=== PATIENT | male | born 1985 | race Caucasian/White ===

== ENCOUNTER 2021-04-26 15:14 | Inpatient (IN) | payer OTHER ==
[~2021-04-26 15:14] MED LIST: Iopamidol-370 76% 500 ML 1 ML ONE
[2021-04-26 15:46] LABS: #Lymphocytes 1.8 thou/uL (1.20-3.40); #Monocytes 0.3 thou/uL (0.11-0.59); #Neutrophils 5.8 thou/uL (1.40-6.50); %Basophils 0.2 % (0.0-1.0); %Eosinophils 0.4 % (0.0-10.0); %Lymphocytes 22.8 % (21.0-51.0); %Monocytes 3.4 % (0.0-10.0); %Neutrophils 73.2 % (42.0-75.0); Hemoglobin 14.7 g/dL (14.0-18.0); Mean Corpuscular HGB CONC 34.3 g/dL (32.0-36.0); Mean Corpuscular Hemoglobin 32.2 pg (27.0-31.0); Mean Corpuscular Volume 93.9 fL (78.0-98.0); Mean Platelet Volume 7.8 fL (7.4-10.4); Platelet Count 234 thou/uL (130-400); RBC Distribution Width 12.9 % (11.5-14.5); Red Blood Cell (RBC) Count 4.56 mill/uL (4.70-6.10); White Blood Cell (WBC) Count 7.9 thou/uL (4.8-10.8)
[2021-04-26] MEDS ORDERED: Ondansetron PF 4 MG/2 ML Vial ONE (16:24)
[2021-04-26] MEDS ORDERED: Morphine 4 MG/ML VIAL ONE (16:25)
[2021-04-26] MEDS ORDERED: Piperacillin/Tazobactam 3.375 GM VIAL ONE (17:02)
[2021-04-26] MEDS ORDERED: Acetaminophen 500 MG TAB ONE ×2 (17:03)
[2021-04-26] MEDS ORDERED: Piperacillin/Tazobactam 4.5 GM VIAL ONE (17:06)
[2021-04-26 17:07] LABS: ALT (SGPT) 12 U/L (8-55); AST (SGOT) 30 U/L (5-34); Albumin 3.4 g/dL (3.5-5.0); Alkaline Phosphatase 95 U/L (40-110); Anion Gap 20 mmol/L (10-20); BUN (Urea Nitrogen) 19 mg/dL (8.9-20.6); Bilirubin, Total 0.9 mg/dL (0.2-1.2); Calc. Creatinine Clearance 0 mL/min (70-130); Calcium 8.8 mg/dL (7.8-10.44); Carbon Dioxide 20 mmol/L (22-29); Chloride 97 mmol/L (98-107); Globulin 3.6 g/dL (2.4-3.5); Glucose 99 mg/dL (70-105); Potassium 3.8 mmol/L (3.5-5.1); Sodium 133 mmol/L (136-145)
[2021-04-26] MEDS ORDERED: Ondansetron PF 4 MG/2 ML Vial IVP PRN (17:54)
[2021-04-26 18:19] LABS: SARS-CoV-2 NAA Rapid Test Not Detected (NotDetected)
[2021-04-26 19:28] LABS: Lactic Acid 1.9 mmol/L (0.5-2.2)
[2021-04-26] MEDS ORDERED: Sodium Chloride 0.9% 1,000 ML IV SCH (21:00)
[2021-04-26] MEDS: Piperacillin/Tazobactam 3.375 GM in Sodium Chloride 0.9% 100 ML IVPB SCH (21:01)
[2021-04-26] MEDS: metroNIDAZOLE 500 MG in Premix Bag 1 BAG IVPB SCH (21:43)
[2021-04-26] MEDS: Sodium Chloride 0.9% 1,000 ML IV SCH (22:59)
[2021-04-27] MEDS: Morphine 4 MG/ML VIAL SLOW IVP PRN ×3 (01:28→13:02)
[2021-04-27] MEDS: Sodium Chloride 0.9% 1,000 ML IV SCH ×3 (01:31→22:26)
[2021-04-27 02:22] VITALS: BMI 35.1
[2021-04-27] MEDS: Piperacillin/Tazobactam 3.375 GM in Sodium Chloride 0.9% 100 ML IVPB SCH ×3 (05:37→21:12)
[2021-04-27] MEDS: metroNIDAZOLE 500 MG in Premix Bag 1 BAG IVPB SCH ×3 (05:38→21:12)
[2021-04-27 07:33] LABS: INR-International Normal Ratio 1.3; PTT 30.3 sec (22.9-36.1); Prothrombin Time 16.6 sec (12.0-14.7)
[2021-04-27 07:44] LABS: ALT (SGPT) 17 U/L (8-55); AST (SGOT) 35 U/L (5-34); Albumin 3.1 g/dL (3.5-5.0); Alkaline Phosphatase 64 U/L (40-110); Anion Gap 22 mmol/L (10-20); BUN (Urea Nitrogen) 20 mg/dL (8.9-20.6); Bilirubin, Total 1.4 mg/dL (0.2-1.2); Calc. Creatinine Clearance 174 mL/min (70-130); Calcium 8.6 mg/dL (7.8-10.44); Carbon Dioxide 19 mmol/L (22-29); Chloride 103 mmol/L (98-107); Globulin 3.4 g/dL (2.4-3.5); Glucose 93 mg/dL (70-105); Potassium 5.2 mmol/L (3.5-5.1); Protein, Total 6.5 g/dL (6.0-8.3); Sodium 139 mmol/L (136-145)
[2021-04-27 07:55] LABS: Hemoglobin 16.9 g/dL (14.0-18.0); Mean Corpuscular HGB CONC 33.3 g/dL (32.0-36.0); Mean Corpuscular Hemoglobin 31.4 pg (27.0-31.0); Mean Corpuscular Volume 94.4 fL (78.0-98.0); Mean Platelet Volume 8.7 fL (7.4-10.4); Platelet Count 257 thou/uL (130-400); RBC Distribution Width 13.3 % (11.5-14.5); Red Blood Cell (RBC) Count 5.38 mill/uL (4.70-6.10); White Blood Cell (WBC) Count 21.7 thou/uL (4.8-10.8)
[2021-04-27] MEDS ORDERED: Sodium Bicarbonate 2.5 MEQ/5 ML VIAL ONE (08:05)
[2021-04-27] MEDS ORDERED: Fentanyl 100 MCG/2 ML VIAL ONE (08:05)
[2021-04-27 08:49] LABS: Band 55 % (5-11); Dohle Bodies SLIGHT; Lymphocytes 10 % (21-51); MDiff Complete? YES; Metamyelocyte 5 % (0-0); Monocytes 2 % (0-10); Neutrophil 28 % (42-75); Nucleated RBC 1 % (0); Platelet Morphology Comment Appears Adequate; Polychromasia SLIGHT = 2-3 cells (100X) (0-2/hpf); Reflex for Review?? YES; Vacuoles SLIGHT
[2021-04-27] MEDS ORDERED: Sodium Chloride 0.9% 1,000 ML IV SCH (09:30)
[2021-04-28] MEDS: Sodium Chloride 0.9% 1,000 ML IV SCH ×3 (02:22→18:58)
[2021-04-28] MEDS: Piperacillin/Tazobactam 3.375 GM in Sodium Chloride 0.9% 100 ML IVPB SCH ×3 (05:12→21:12)
[2021-04-28] MEDS: metroNIDAZOLE 500 MG in Premix Bag 1 BAG IVPB SCH ×3 (05:12→21:13)
[2021-04-28] MEDS ORDERED: Sodium Chloride 0.9% 500 ML IV SCH (10:00)
[2021-04-28] MEDS: Morphine 4 MG/ML VIAL SLOW IVP PRN (10:43)
[2021-04-28] MEDS ORDERED: Lurasidone HCl 40 MG TABLET PO SCH (21:00)
[2021-04-28] MEDS: Aripiprazole 15 MG TAB PO SCH (21:12)
[2021-04-28] MEDS: Zolpidem Tartrate 5 MG TAB PO SCH (21:12)
[2021-04-28] MEDS: Temazepam 15 MG CAP PO SCH (21:12)
[2021-04-28] MEDS: Prazosin HCl 1 MG CAP PO SCH (21:13)
[2021-04-29] MEDS: Sodium Chloride 0.9% 1,000 ML IV SCH ×4 (02:07→13:34)
[2021-04-29] MEDS: Piperacillin/Tazobactam 3.375 GM in Sodium Chloride 0.9% 100 ML IVPB SCH (05:35)
[2021-04-29] MEDS: metroNIDAZOLE 500 MG in Premix Bag 1 BAG IVPB SCH ×3 (05:35→21:42)
[2021-04-29] MEDS: Levothyroxine Sodium 100 MCG TAB PO SCH (05:35)
[2021-04-29 07:10] LABS: Hemoglobin 13.8 g/dL (14.0-18.0); Mean Corpuscular HGB CONC 32.5 g/dL (32.0-36.0); Mean Corpuscular Hemoglobin 31.1 pg (27.0-31.0); Mean Corpuscular Volume 95.8 fL (78.0-98.0); Mean Platelet Volume 8.4 fL (7.4-10.4); Platelet Count 227 thou/uL (130-400); RBC Distribution Width 13.9 % (11.5-14.5); Red Blood Cell (RBC) Count 4.45 mill/uL (4.70-6.10); White Blood Cell (WBC) Count 20.2 thou/uL (4.8-10.8)
[2021-04-29 07:14] LABS: ALT (SGPT) 18 U/L (8-55); AST (SGOT) 49 U/L (5-34); Albumin 2.7 g/dL (3.5-5.0); Alkaline Phosphatase 91 U/L (40-110); Anion Gap 16 mmol/L (10-20); BUN (Urea Nitrogen) 22 mg/dL (8.9-20.6); Calc. Creatinine Clearance 203 mL/min (70-130); Calcium 8.6 mg/dL (7.8-10.44); Carbon Dioxide 20 mmol/L (22-29); Chloride 102 mmol/L (98-107); Globulin 3.7 g/dL (2.4-3.5); Glucose 91 mg/dL (70-105); Potassium 3.6 mmol/L (3.5-5.1); Protein, Total 6.4 g/dL (6.0-8.3); Sodium 134 mmol/L (136-145)
[2021-04-29 08:14] LABS: Band 21 % (5-11); Eosinophils 1 % (0-10); Lymphocytes 5 % (21-51); MDiff Complete? YES; Metamyelocyte 3 % (0-0); Monocytes 8 % (0-10); Myelocyte 1 % (0-0); Neutrophil 60 % (42-75); Platelet Morphology Comment Appears Adequate; Polychromasia SLIGHT = 2-3 cells (100X) (0-2/hpf); Reactive Lymphocytes 1 % (0-10)
[2021-04-29] MEDS: Bupropion 100 MG SR TAB PO SCH (09:39)
[2021-04-29] MEDS: Lurasidone 20 MG TABLET PO SCH ×2 (09:39→21:41)
[2021-04-29] MEDS: Venlafaxine HCl XR 75 MG CAP PO SCH (09:40)
[2021-04-29 12:56] LABS: Lactic Acid 1.9 mmol/L (0.5-2.2)
[2021-04-29] MEDS: Aripiprazole 15 MG TAB PO SCH (21:40)
[2021-04-29] MEDS: Enoxaparin Sodium 30 MG/0.3 ML SYRINGE SC SCH (21:40)
[2021-04-29] MEDS: Prazosin HCl 1 MG CAP PO SCH (21:41)
[2021-04-29] MEDS: Zolpidem Tartrate 5 MG TAB PO SCH (21:41)
[2021-04-29] MEDS: Temazepam 15 MG CAP PO SCH (21:41)
[2021-04-29] MEDS: Famotidine/PF 20 mg/2ml Vial SLOW IVP SCH (21:42)
[2021-04-30] MEDS: Levothyroxine Sodium 100 MCG TAB PO SCH (05:43)
[2021-04-30] MEDS: metroNIDAZOLE 500 MG in Premix Bag 1 BAG IVPB SCH ×3 (05:43→21:45)
[2021-04-30 06:43] LABS: Hemoglobin 12.6 g/dL (14.0-18.0); Mean Corpuscular HGB CONC 33.7 g/dL (32.0-36.0); Mean Platelet Volume 8.2 fL (7.4-10.4); Platelet Count 188 thou/uL (130-400); RBC Distribution Width 13.8 % (11.5-14.5); Red Blood Cell (RBC) Count 3.95 mill/uL (4.70-6.10); White Blood Cell (WBC) Count 20.7 thou/uL (4.8-10.8)
[2021-04-30 07:01] LABS: Anion Gap 13 mmol/L (10-20); BUN (Urea Nitrogen) 20 mg/dL (8.9-20.6); Calc. Creatinine Clearance 229 mL/min (70-130); Calcium 7.8 mg/dL (7.8-10.44); Carbon Dioxide 21 mmol/L (22-29); Chloride 101 mmol/L (98-107); Glucose 87 mg/dL (70-105); Magnesium 1.9 mg/dL (1.6-2.6); Phosphorus 3.3 mg/dL (2.3-4.7); Potassium 3.7 mmol/L (3.5-5.1); Sodium 131 mmol/L (136-145)
[2021-04-30] MEDS: Bupropion 100 MG SR TAB PO SCH (08:27)
[2021-04-30] MEDS: Enoxaparin Sodium 30 MG/0.3 ML SYRINGE SC SCH ×2 (08:27→21:34)
[2021-04-30] MEDS: Venlafaxine HCl XR 75 MG CAP PO SCH (08:27)
[2021-04-30] MEDS: Famotidine/PF 20 mg/2ml Vial SLOW IVP SCH ×2 (08:27→21:37)
[2021-04-30] MEDS: Lurasidone 20 MG TABLET PO SCH ×2 (08:29→21:35)
[2021-04-30 08:37] LABS: Band 20 % (5-11); Lymphocytes 10 % (21-51); MDiff Complete? YES; Metamyelocyte 1 % (0-0); Monocytes 1 % (0-10); Myelocyte 2 % (0-0); Neutrophil 66 % (42-75); RBC Morphology Normal
[2021-04-30] MEDS ORDERED: FLU VACC QS2021-22(6MOS UP)/PF 60 MCG/0.5 ML SYRINGE IM ONE (09:00)
[2021-04-30] MEDS ORDERED: Magnesium 2 GM/50 ML 2 GM in Premix Bag 1 BAG IVPB SCH (10:45)
[2021-04-30] MEDS ORDERED: Potassium Phosphate 15 MMOL in Sodium Chloride 0.9% 250 ML 250 ML IVPB SCH ×2 (10:45→17:15)
[2021-04-30] MEDS: Sodium Chloride 0.9% 1,000 ML IV SCH (13:15)
[2021-04-30] MEDS ORDERED: metroNIDAZOLE 500 MG in Premix Bag 1 BAG IVPB SCH (15:45)
[2021-04-30] MEDS: Temazepam 15 MG CAP PO SCH (21:34)
[2021-04-30] MEDS: Prazosin HCl 1 MG CAP PO SCH (21:35)
[2021-04-30] MEDS: Aripiprazole 15 MG TAB PO SCH (21:35)
[2021-04-30] MEDS: Zolpidem Tartrate 5 MG TAB PO SCH (21:36)
[2021-05-01 06:02] LABS: Hemoglobin 12.4 g/dL (14.0-18.0); Mean Corpuscular HGB CONC 32.3 g/dL (32.0-36.0); Mean Corpuscular Hemoglobin 30.8 pg (27.0-31.0); Mean Corpuscular Volume 95.3 fL (78.0-98.0); Mean Platelet Volume 8.3 fL (7.4-10.4); Platelet Count 184 thou/uL (130-400); RBC Distribution Width 14.1 % (11.5-14.5); Red Blood Cell (RBC) Count 4.04 mill/uL (4.70-6.10); White Blood Cell (WBC) Count 20.6 thou/uL (4.8-10.8)
[2021-05-01] MEDS: metroNIDAZOLE 500 MG in Premix Bag 1 BAG IVPB SCH ×3 (06:15→21:38)
[2021-05-01] MEDS: Levothyroxine Sodium 100 MCG TAB PO SCH (06:16)
[2021-05-01 06:20] LABS: Anion Gap 15 mmol/L (10-20); BUN (Urea Nitrogen) 16 mg/dL (8.9-20.6); Calc. Creatinine Clearance 218 mL/min (70-130); Calcium 7.9 mg/dL (7.8-10.44); Carbon Dioxide 23 mmol/L (22-29); Chloride 101 mmol/L (98-107); Glucose 86 mg/dL (70-105); Phosphorus 3.6 mg/dL (2.3-4.7); Potassium 3.7 mmol/L (3.5-5.1); Sodium 135 mmol/L (136-145)
[2021-05-01 06:31] LABS: Band 28 % (5-11); Eosinophils 1 % (0-10); Lymphocytes 4 % (21-51); MDiff Complete? YES; Metamyelocyte 3 % (0-0); Monocytes 3 % (0-10); Myelocyte 1 % (0-0); Neutrophil 60 % (42-75)
[2021-05-01] MEDS: Famotidine/PF 20 mg/2ml Vial SLOW IVP SCH ×2 (07:54→21:20)
[2021-05-01] MEDS: Bupropion 100 MG SR TAB PO SCH (07:55)
[2021-05-01] MEDS: Lurasidone 20 MG TABLET PO SCH ×2 (07:55→21:21)
[2021-05-01] MEDS: Venlafaxine HCl XR 75 MG CAP PO SCH (07:55)
[2021-05-01] MEDS: Enoxaparin Sodium 30 MG/0.3 ML SYRINGE SC SCH ×2 (07:55→21:20)
[2021-05-01] MEDS ORDERED: Potassium Phosphate 15 MMOL in Sodium Chloride 0.9% 250 ML 250 ML IVPB SCH (09:45)
[2021-05-01] MEDS ORDERED: Iopamidol 370 76% 50 ML VIAL FS ONE (11:09)
[2021-05-01] MEDS ORDERED: Iopamidol-370 76% 500 ML 1 ML ONE (11:09)
[2021-05-01] MEDS: Aripiprazole 15 MG TAB PO SCH (21:20)
[2021-05-01] MEDS: Prazosin HCl 1 MG CAP PO SCH (21:22)
[2021-05-01] MEDS: Temazepam 15 MG CAP PO SCH (21:23)
[2021-05-01] MEDS: Zolpidem Tartrate 5 MG TAB PO SCH (21:24)
[2021-05-02 05:04] LABS: Hemoglobin 11.7 g/dL (14.0-18.0); Mean Corpuscular HGB CONC 33.3 g/dL (32.0-36.0); Mean Corpuscular Hemoglobin 31.8 pg (27.0-31.0); Mean Corpuscular Volume 95.5 fL (78.0-98.0); Mean Platelet Volume 8.6 fL (7.4-10.4); Platelet Count 201 thou/uL (130-400); Red Blood Cell (RBC) Count 3.69 mill/uL (4.70-6.10); White Blood Cell (WBC) Count 19.5 thou/uL (4.8-10.8)
[2021-05-02 05:16] LABS: Phosphorus 3.5 mg/dL (2.3-4.7)
[2021-05-02 05:20] LABS: Anion Gap 13 mmol/L (10-20); BUN (Urea Nitrogen) 12 mg/dL (8.9-20.6); Calc. Creatinine Clearance 220 mL/min (70-130); Calcium 7.8 mg/dL (7.8-10.44); Carbon Dioxide 24 mmol/L (22-29); Chloride 101 mmol/L (98-107); Glucose 95 mg/dL (70-105); Magnesium 1.9 mg/dL (1.6-2.6); Potassium 3.8 mmol/L (3.5-5.1); Sodium 134 mmol/L (136-145)
[2021-05-02] MEDS: metroNIDAZOLE 500 MG in Premix Bag 1 BAG IVPB SCH (06:35)
[2021-05-02] MEDS: Levothyroxine Sodium 100 MCG TAB PO SCH (06:35)
[2021-05-02 06:47] LABS: Band 17 % (5-11); Lymphocytes 16 % (21-51); MDiff Complete? YES; Monocytes 3 % (0-10); Neutrophil 64 % (42-75)
[2021-05-02] MEDS: Lurasidone 20 MG TABLET PO SCH ×2 (08:31→20:46)
[2021-05-02] MEDS: Famotidine/PF 20 mg/2ml Vial SLOW IVP SCH ×2 (08:32→20:50)
[2021-05-02] MEDS: Enoxaparin Sodium 30 MG/0.3 ML SYRINGE SC SCH ×2 (08:32→20:49)
[2021-05-02] MEDS: Venlafaxine HCl XR 75 MG CAP PO SCH (08:32)
[2021-05-02] MEDS: Bupropion 100 MG SR TAB PO SCH (08:42)
[2021-05-02] MEDS ORDERED: traMADol HCl 50 MG TAB PO PRN (09:45)
[2021-05-02] MEDS ORDERED: PHOS-NAK 1 PKT PACK PO SCH (12:00)
[2021-05-02] MEDS: Acetaminophen 500 MG TAB PO PRN (12:23)
[2021-05-02] MEDS: metroNIDAZOLE 500 MG TAB PO SCH ×2 (14:49→20:52)
[2021-05-02] MEDS: Temazepam 15 MG CAP PO SCH (20:45)
[2021-05-02] MEDS: Zolpidem Tartrate 5 MG TAB PO SCH (20:45)
[2021-05-02] MEDS: Aripiprazole 15 MG TAB PO SCH (20:49)
[2021-05-02] MEDS: Prazosin HCl 1 MG CAP PO SCH (20:51)
[2021-05-02] MEDS: Senokot S 8.6-50 MG TAB PO SCH (20:51)
[2021-05-03 04:52] LABS: Hemoglobin 11.1 g/dL (14.0-18.0); Mean Corpuscular HGB CONC 33.5 g/dL (32.0-36.0); Mean Corpuscular Hemoglobin 32.1 pg (27.0-31.0); Mean Corpuscular Volume 95.7 fL (78.0-98.0); Mean Platelet Volume 8.4 fL (7.4-10.4); Platelet Count 220 thou/uL (130-400); Red Blood Cell (RBC) Count 3.47 mill/uL (4.70-6.10); White Blood Cell (WBC) Count 16.8 thou/uL (4.8-10.8)
[2021-05-03 05:11] LABS: Anion Gap 11 mmol/L (10-20); BUN (Urea Nitrogen) 13 mg/dL (8.9-20.6); Calc. Creatinine Clearance 229 mL/min (70-130); Calcium 7.9 mg/dL (7.8-10.44); Carbon Dioxide 25 mmol/L (22-29); Chloride 102 mmol/L (98-107); Glucose 108 mg/dL (70-105); Magnesium 1.7 mg/dL (1.6-2.6); Phosphorus 3.8 mg/dL (2.3-4.7); Potassium 3.9 mmol/L (3.5-5.1); Sodium 134 mmol/L (136-145)
[2021-05-03] MEDS: Levothyroxine Sodium 100 MCG TAB PO SCH (05:15)
[2021-05-03 05:43] LABS: Band 19 % (5-11); Eosinophils 1 % (0-10); Lymphocytes 9 % (21-51); MDiff Complete? YES; Metamyelocyte 1 % (0-0); Monocytes 7 % (0-10); Myelocyte 2 % (0-0); Neutrophil 61 % (42-75)
[2021-05-03] MEDS: metroNIDAZOLE 500 MG TAB PO SCH ×3 (09:36→20:30)
[2021-05-03] MEDS: Venlafaxine HCl XR 75 MG CAP PO SCH (09:37)
[2021-05-03] MEDS: Senokot S 8.6-50 MG TAB PO SCH ×2 (09:38→20:30)
[2021-05-03] MEDS: Famotidine 20 MG TAB PO SCH ×2 (09:38→20:31)
[2021-05-03] MEDS: Bupropion 100 MG SR TAB PO SCH (09:39)
[2021-05-03] MEDS: Lurasidone 20 MG TABLET PO SCH ×2 (09:39→20:35)
[2021-05-03] MEDS: Polyethylene Glycol 3350 17 GM Packet PO SCH (09:40)
[2021-05-03] MEDS: Enoxaparin Sodium 30 MG/0.3 ML SYRINGE SC SCH ×2 (09:40→20:31)
[2021-05-03] MEDS: Zolpidem Tartrate 5 MG TAB PO SCH (20:30)
[2021-05-03] MEDS: Aripiprazole 15 MG TAB PO SCH (20:30)
[2021-05-03] MEDS: Temazepam 15 MG CAP PO SCH (20:30)
[2021-05-03] MEDS: Prazosin HCl 1 MG CAP PO SCH (20:34)
[2021-05-04 03:15] LABS: #Eosinphils 0.1 thou/uL (0.0-0.7); #Lymphocytes 1.5 thou/uL (1.20-3.40); #Neutrophils 13.5 thou/uL (1.40-6.50); %Basophils 0.2 % (0.0-1.0); %Eosinophils 0.3 % (0.0-10.0); %Lymphocytes 9.4 % (21.0-51.0); %Monocytes 6.2 % (0.0-10.0); %Neutrophils 83.9 % (42.0-75.0); Hemoglobin 11.4 g/dL (14.0-18.0); Mean Corpuscular HGB CONC 33.7 g/dL (32.0-36.0); Mean Corpuscular Hemoglobin 32.3 pg (27.0-31.0); Mean Corpuscular Volume 95.8 fL (78.0-98.0); Mean Platelet Volume 8.3 fL (7.4-10.4); Platelet Count 251 thou/uL (130-400); RBC Distribution Width 13.9 % (11.5-14.5); Red Blood Cell (RBC) Count 3.51 mill/uL (4.70-6.10); White Blood Cell (WBC) Count 16.1 thou/uL (4.8-10.8)
[2021-05-04 03:45] LABS: Anion Gap 14 mmol/L (10-20); BUN (Urea Nitrogen) 10 mg/dL (8.9-20.6); Calc. Creatinine Clearance 194 mL/min (70-130); Calcium 7.9 mg/dL (7.8-10.44); Carbon Dioxide 24 mmol/L (22-29); Chloride 101 mmol/L (98-107); Glucose 107 mg/dL (70-105); Sodium 135 mmol/L (136-145)
[2021-05-04] MEDS: Levothyroxine Sodium 100 MCG TAB PO SCH (06:05)
[2021-05-04] MEDS: metroNIDAZOLE 500 MG TAB PO SCH ×2 (09:30→15:57)
[2021-05-04] MEDS: Famotidine 20 MG TAB PO SCH ×2 (09:30→19:32)
[2021-05-04] MEDS: Venlafaxine HCl XR 75 MG CAP PO SCH (09:30)
[2021-05-04] MEDS: Senokot S 8.6-50 MG TAB PO SCH ×2 (09:31→19:32)
[2021-05-04] MEDS: Bupropion 100 MG SR TAB PO SCH (09:35)
[2021-05-04] MEDS: Lurasidone 20 MG TABLET PO SCH ×2 (09:36→19:32)
[2021-05-04] MEDS: Enoxaparin Sodium 30 MG/0.3 ML SYRINGE SC SCH ×3 (09:37→19:45)
[2021-05-04] MEDS: Polyethylene Glycol 3350 17 GM Packet PO SCH (09:44)
[2021-05-04] MEDS: Budesonide 0.25 MG/2 ML NEB INH SCH (18:39)
[2021-05-04] MEDS: Temazepam 15 MG CAP PO SCH (19:32)
[2021-05-04] MEDS: Zolpidem Tartrate 5 MG TAB PO SCH (19:32)
[2021-05-04] MEDS: Aripiprazole 15 MG TAB PO SCH (19:33)
[2021-05-04] MEDS: Prazosin HCl 1 MG CAP PO SCH (20:09)
[2021-05-04] MEDS: metroNIDAZOLE 500 MG in Premix Bag 1 BAG IVPB SCH (23:53)
[2021-05-05 00:43] LABS: SARS-CoV-2 PCR by NAA Not Detected (NotDetected)
[2021-05-05] MEDS: Levothyroxine Sodium 100 MCG TAB PO SCH (04:33)
[2021-05-05] MEDS: Budesonide 0.25 MG/2 ML NEB INH SCH ×2 (07:03→18:58)
[2021-05-05] MEDS: Famotidine 20 MG TAB PO SCH ×2 (08:21→22:02)
[2021-05-05] MEDS: Bupropion 100 MG SR TAB PO SCH (08:21)
[2021-05-05] MEDS: Lurasidone 20 MG TABLET PO SCH ×2 (08:21→22:21)
[2021-05-05] MEDS: Polyethylene Glycol 3350 17 GM Packet PO SCH (08:21)
[2021-05-05] MEDS: Senokot S 8.6-50 MG TAB PO SCH ×2 (08:21→22:01)
[2021-05-05] MEDS: Venlafaxine HCl XR 75 MG CAP PO SCH (08:21)
[2021-05-05] MEDS: Enoxaparin Sodium 30 MG/0.3 ML SYRINGE SC SCH ×2 (08:21→22:03)
[2021-05-05] MEDS ORDERED: Midazolam HCl 2 mg/2 ml Vial ONE ×2 (08:47→08:48)
[2021-05-05] MEDS ORDERED: Fentanyl 100 MCG/2 ML VIAL ONE ×2 (08:47→08:48)
[2021-05-05] MEDS ORDERED: HYDROmorphone 2 MG/ML VIAL ONE ×2 (08:47→12:46)
[2021-05-05] MEDS ORDERED: Promethazine HCl 25 MG/ML VIAL ONE (08:48)
[2021-05-05] MEDS ORDERED: SUGAMMADEX SODIUM 200 MG/2 ML VIAL ONE (08:48)
[2021-05-05] MEDS ORDERED: PHENYLEPHRINE-NS 100 MCG/ML 10 ML SYRINGE ONE ×2 (08:56→09:28)
[2021-05-05] MEDS ORDERED: Phenylephrine 10 MG/ML VIAL ONE (08:57)
[2021-05-05] MEDS ORDERED: Dexamethasone 20 MG/5 ML VIAL ONE (09:28)
[2021-05-05] MEDS ORDERED: Ondansetron PF 4 MG/2 ML Vial ONE (09:28)
[2021-05-05] MEDS ORDERED: PROPOFOL 200 MG/20 ML VIAL ONE (09:28)
[2021-05-05] MEDS ORDERED: Rocuronium Bromide 10 MG/ML (10ML VIAL) ONE (09:28)
[2021-05-05] MEDS ORDERED: Lidocaine 1% PF 5 ML VIAL ONE (09:28)
[2021-05-05] MEDS: metroNIDAZOLE 500 MG in Premix Bag 1 BAG IVPB SCH ×3 (09:52→23:54)
[2021-05-05] MEDS ORDERED: ceFOXitin 1 GM VIAL ONE (09:56)
[2021-05-05] MEDS ORDERED: cefOXitin Sodium/Dextrose 2 GM/50 ML BAG ONE (11:48)
[2021-05-05] MEDS ORDERED: Promethazine HCl 25 MG/ML VIAL IM PRN (12:21)
[2021-05-05] MEDS ORDERED: Ondansetron PF 4 MG/2 ML Vial IVP PRN (12:21)
[2021-05-05] MEDS ORDERED: hydrALAZINE 20 MG/ML VIAL SLOW IVP PRN (12:21)
[2021-05-05] MEDS ORDERED: Piperacillin/Tazobactam 3.375 GM in Sodium Chloride 0.9% 100 ML IVPB SCH ×3 (13:00→18:00)
[2021-05-05] MEDS: Sodium Chloride 0.9% 1,000 ML IV SCH ×2 (14:23→22:20)
[2021-05-05 15:18] LABS: Hemoglobin 11.9 g/dL (14.0-18.0); Mean Corpuscular HGB CONC 32.2 g/dL (32.0-36.0); Mean Corpuscular Hemoglobin 31.5 pg (27.0-31.0); Mean Corpuscular Volume 97.6 fL (78.0-98.0); Mean Platelet Volume 8.8 fL (7.4-10.4); Platelet Count 293 thou/uL (130-400); Red Blood Cell (RBC) Count 3.79 mill/uL (4.70-6.10); White Blood Cell (WBC) Count 29.1 thou/uL (4.8-10.8)
[2021-05-05 15:38] LABS: Anion Gap 13 mmol/L (10-20); BUN (Urea Nitrogen) 11 mg/dL (8.9-20.6); Calc. Creatinine Clearance 192 mL/min (70-130); Calcium 7.9 mg/dL (7.8-10.44); Carbon Dioxide 24 mmol/L (22-29); Chloride 102 mmol/L (98-107); Glucose 151 mg/dL (70-105); Potassium 4.8 mmol/L (3.5-5.1); Sodium 134 mmol/L (136-145)
[2021-05-05 15:39] LABS: Band 38 % (5-11); Lymphocytes 4 % (21-51); MDiff Complete? YES; Monocytes 4 % (0-10); Myelocyte 1 % (0-0); Neutrophil 52 % (42-75); Platelet Morphology Comment Appears Adequate; Polychromasia SLIGHT = 2-3 cells (100X) (0-2/hpf); Reactive Lymphocytes 1 % (0-10)
[2021-05-05] MEDS ORDERED: Morphine 4 MG/ML VIAL SLOW IVP PRN (16:58)
[2021-05-05] MEDS ORDERED: Morphine 10 MG/ML VIAL SLOW IVP PRN (17:00)
[2021-05-05] MEDS: Morphine 4 MG/ML VIAL SLOW IVP PRN (17:46)
[2021-05-05] MEDS: Ketorolac Tromethamine 30 MG/ML VIAL IVP SCH ×2 (17:46→23:54)
[2021-05-05] MEDS: Piperacillin/Tazobactam 3.375 GM in Sodium Chloride 0.9% 100 ML IVPB SCH (18:19)
[2021-05-05] MEDS: Temazepam 15 MG CAP PO SCH (22:01)
[2021-05-05] MEDS: Zolpidem Tartrate 5 MG TAB PO SCH (22:03)
[2021-05-05] MEDS: Aripiprazole 15 MG TAB PO SCH (22:03)
[2021-05-05] MEDS: Prazosin HCl 1 MG CAP PO SCH (22:03)
[2021-05-05] MEDS: Famotidine/PF 20 mg/2ml Vial SLOW IVP SCH (22:20)
[2021-05-06] MEDS: Piperacillin/Tazobactam 3.375 GM in Sodium Chloride 0.9% 100 ML IVPB SCH ×3 (03:22→19:58)
[2021-05-06] MEDS: Ketorolac Tromethamine 30 MG/ML VIAL IVP SCH ×3 (06:00→18:36)
[2021-05-06] MEDS: Levothyroxine Sodium 100 MCG TAB PO SCH (06:00)
[2021-05-06 06:27] LABS: #Eosinphils 0.2 thou/uL (0.0-0.7); #Lymphocytes 1.2 thou/uL (1.20-3.40); #Monocytes 1.3 thou/uL (0.11-0.59); %Basophils 0.1 % (0.0-1.0); %Eosinophils 0.9 % (0.0-10.0); %Lymphocytes 6.1 % (21.0-51.0); %Monocytes 6.6 % (0.0-10.0); %Neutrophils 86.3 % (42.0-75.0); Hemoglobin 11.3 g/dL (14.0-18.0); Mean Corpuscular HGB CONC 32.7 g/dL (32.0-36.0); Mean Corpuscular Hemoglobin 32.1 pg (27.0-31.0); Mean Corpuscular Volume 98.3 fL (78.0-98.0); Mean Platelet Volume 8.7 fL (7.4-10.4); Platelet Count 316 thou/uL (130-400); RBC Distribution Width 13.9 % (11.5-14.5); Red Blood Cell (RBC) Count 3.51 mill/uL (4.70-6.10); White Blood Cell (WBC) Count 19.7 thou/uL (4.8-10.8)
[2021-05-06 06:29] LABS: Anion Gap 13 mmol/L (10-20); BUN (Urea Nitrogen) 14 mg/dL (8.9-20.6); Calc. Creatinine Clearance 186 mL/min (70-130); Calcium 7.9 mg/dL (7.8-10.44); Carbon Dioxide 26 mmol/L (22-29); Chloride 103 mmol/L (98-107); Glucose 108 mg/dL (70-105); Potassium 4.7 mmol/L (3.5-5.1); Sodium 137 mmol/L (136-145)
[2021-05-06] MEDS: Budesonide 0.25 MG/2 ML NEB INH SCH ×2 (07:22→18:37)
[2021-05-06] MEDS: Bupropion 100 MG SR TAB PO SCH (07:50)
[2021-05-06] MEDS: Senokot S 8.6-50 MG TAB PO SCH ×2 (07:51→21:58)
[2021-05-06] MEDS: Lurasidone 20 MG TABLET PO SCH (07:51)
[2021-05-06] MEDS: Famotidine 20 MG TAB PO SCH ×2 (07:51→21:59)
[2021-05-06] MEDS: Polyethylene Glycol 3350 17 GM Packet PO SCH (07:51)
[2021-05-06] MEDS: Venlafaxine HCl XR 75 MG CAP PO SCH (07:52)
[2021-05-06] MEDS: Sodium Chloride 0.9% 1,000 ML IV SCH ×2 (08:01→18:35)
[2021-05-06] MEDS: Famotidine/PF 20 mg/2ml Vial SLOW IVP SCH (08:01)
[2021-05-06] MEDS: Enoxaparin Sodium 30 MG/0.3 ML SYRINGE SC SCH ×2 (08:01→21:58)
[2021-05-06] MEDS: metroNIDAZOLE 500 MG in Premix Bag 1 BAG IVPB SCH ×2 (09:54→17:12)
[2021-05-06] MEDS: Aripiprazole 15 MG TAB PO SCH (21:58)
[2021-05-06] MEDS: Prazosin HCl 1 MG CAP PO SCH (21:58)
[2021-05-06] MEDS: Temazepam 15 MG CAP PO SCH (21:58)
[2021-05-06] MEDS: Zolpidem Tartrate 5 MG TAB PO SCH (21:59)
[2021-05-07] MEDS: Famotidine/PF 20 mg/2ml Vial SLOW IVP SCH ×3 (00:58→22:14)
[2021-05-07] MEDS: Lurasidone 20 MG TABLET PO SCH ×3 (00:58→22:11)
[2021-05-07] MEDS: Ketorolac Tromethamine 30 MG/ML VIAL IVP SCH ×5 (00:59→23:29)
[2021-05-07] MEDS: metroNIDAZOLE 500 MG in Premix Bag 1 BAG IVPB SCH ×3 (02:30→20:15)
[2021-05-07] MEDS: Sodium Chloride 0.9% 1,000 ML IV SCH ×4 (02:31→21:54)
[2021-05-07] MEDS: Piperacillin/Tazobactam 3.375 GM in Sodium Chloride 0.9% 100 ML IVPB SCH ×3 (04:28→21:58)
[2021-05-07 06:06] LABS: #Eosinphils 0.1 thou/uL (0.0-0.7); #Lymphocytes 1.4 thou/uL (1.20-3.40); #Neutrophils 9.7 thou/uL (1.40-6.50); %Basophils 0.3 % (0.0-1.0); %Eosinophils 0.4 % (0.0-10.0); %Lymphocytes 11.6 % (21.0-51.0); %Monocytes 8.5 % (0.0-10.0); %Neutrophils 79.1 % (42.0-75.0); Hemoglobin 8.5 g/dL (14.0-18.0); Mean Corpuscular Volume 97.1 fL (78.0-98.0); Mean Platelet Volume 7.7 fL (7.4-10.4); Platelet Count 324 thou/uL (130-400); RBC Distribution Width 13.7 % (11.5-14.5); Red Blood Cell (RBC) Count 2.65 mill/uL (4.70-6.10); White Blood Cell (WBC) Count 12.3 thou/uL (4.8-10.8)
[2021-05-07] MEDS: Levothyroxine Sodium 100 MCG TAB PO SCH (06:06)
[2021-05-07 06:21] LABS: Anion Gap 13 mmol/L (10-20); BUN (Urea Nitrogen) 11 mg/dL (8.9-20.6); Calc. Creatinine Clearance 188 mL/min (70-130); Calcium 7.4 mg/dL (7.8-10.44); Carbon Dioxide 24 mmol/L (22-29); Chloride 106 mmol/L (98-107); Glucose 86 mg/dL (70-105); Potassium 3.9 mmol/L (3.5-5.1); Sodium 139 mmol/L (136-145)
[2021-05-07] MEDS: Budesonide 0.25 MG/2 ML NEB INH SCH ×2 (08:13→18:33)
[2021-05-07] MEDS: Venlafaxine HCl XR 75 MG CAP PO SCH (09:28)
[2021-05-07] MEDS: Polyethylene Glycol 3350 17 GM Packet PO SCH (09:28)
[2021-05-07] MEDS: Enoxaparin Sodium 30 MG/0.3 ML SYRINGE SC SCH ×2 (09:29→21:57)
[2021-05-07] MEDS: Senokot S 8.6-50 MG TAB PO SCH ×2 (09:30→21:56)
[2021-05-07] MEDS: Bupropion 100 MG SR TAB PO SCH (09:30)
[2021-05-07] MEDS: Famotidine 20 MG TAB PO SCH ×2 (09:30→21:56)
[2021-05-07] MEDS: traMADol HCl 50 MG TAB PO PRN (11:44)
[2021-05-07] MEDS: Acetaminophen 500 MG TAB PO PRN (16:03)
[2021-05-07] MEDS: Zolpidem Tartrate 5 MG TAB PO SCH (21:56)
[2021-05-07] MEDS: Temazepam 15 MG CAP PO SCH (21:56)
[2021-05-07] MEDS: Aripiprazole 15 MG TAB PO SCH (22:11)
[2021-05-07] MEDS: Prazosin HCl 1 MG CAP PO SCH (22:11)
[2021-05-08] MEDS: metroNIDAZOLE 500 MG in Premix Bag 1 BAG IVPB SCH ×3 (04:15→20:04)
[2021-05-08] MEDS: Ketorolac Tromethamine 30 MG/ML VIAL IVP SCH ×3 (05:17→18:05)
[2021-05-08] MEDS: Levothyroxine Sodium 100 MCG TAB PO SCH (05:17)
[2021-05-08] MEDS: Piperacillin/Tazobactam 3.375 GM in Sodium Chloride 0.9% 100 ML IVPB SCH ×3 (05:18→21:38)
[2021-05-08 06:16] LABS: #Eosinphils 0.2 thou/uL (0.0-0.7); #Lymphocytes 1.9 thou/uL (1.20-3.40); #Monocytes 0.9 thou/uL (0.11-0.59); #Neutrophils 7.2 thou/uL (1.40-6.50); %Basophils 0.2 % (0.0-1.0); %Eosinophils 1.9 % (0.0-10.0); %Lymphocytes 18.3 % (21.0-51.0); %Monocytes 8.9 % (0.0-10.0); %Neutrophils 70.8 % (42.0-75.0); Hemoglobin 8.6 g/dL (14.0-18.0); Mean Corpuscular HGB CONC 32.3 g/dL (32.0-36.0); Mean Corpuscular Hemoglobin 31.7 pg (27.0-31.0); Mean Corpuscular Volume 98.1 fL (78.0-98.0); Mean Platelet Volume 7.3 fL (7.4-10.4); Platelet Count 365 thou/uL (130-400); RBC Distribution Width 13.7 % (11.5-14.5); Red Blood Cell (RBC) Count 2.71 mill/uL (4.70-6.10); White Blood Cell (WBC) Count 10.2 thou/uL (4.8-10.8)
[2021-05-08 06:34] LABS: Anion Gap 12 mmol/L (10-20); BUN (Urea Nitrogen) 9 mg/dL (8.9-20.6); Calc. Creatinine Clearance 205 mL/min (70-130); Calcium 7.5 mg/dL (7.8-10.44); Carbon Dioxide 24 mmol/L (22-29); Chloride 108 mmol/L (98-107); Glucose 77 mg/dL (70-105); Sodium 140 mmol/L (136-145)
[2021-05-08] MEDS: Budesonide 0.25 MG/2 ML NEB INH SCH ×2 (06:47→18:32)
[2021-05-08] MEDS: Famotidine/PF 20 mg/2ml Vial SLOW IVP SCH ×2 (07:39→20:08)
[2021-05-08] MEDS: Sodium Chloride 0.9% 1,000 ML IV SCH ×2 (08:44→17:48)
[2021-05-08] MEDS: Enoxaparin Sodium 30 MG/0.3 ML SYRINGE SC SCH ×2 (08:45→20:07)
[2021-05-08] MEDS: Polyethylene Glycol 3350 17 GM Packet PO SCH (08:45)
[2021-05-08] MEDS: Bupropion 100 MG SR TAB PO SCH (08:46)
[2021-05-08] MEDS: Venlafaxine HCl XR 75 MG CAP PO SCH (08:46)
[2021-05-08] MEDS: Senokot S 8.6-50 MG TAB PO SCH ×2 (08:47→20:07)
[2021-05-08] MEDS: Famotidine 20 MG TAB PO SCH ×2 (08:47→20:06)
[2021-05-08] MEDS: Lurasidone 20 MG TABLET PO SCH ×2 (08:48→20:05)
[2021-05-08] MEDS: traMADol HCl 50 MG TAB PO PRN (08:52)
[2021-05-08] MEDS: Aripiprazole 15 MG TAB PO SCH (20:05)
[2021-05-08] MEDS: Prazosin HCl 1 MG CAP PO SCH (20:05)
[2021-05-08] MEDS: Temazepam 15 MG CAP PO SCH (20:06)
[2021-05-08] MEDS: Zolpidem Tartrate 5 MG TAB PO SCH (20:07)
[2021-05-09] MEDS: Sodium Chloride 0.9% 1,000 ML IV SCH ×3 (02:00→12:59)
[2021-05-09] MEDS: metroNIDAZOLE 500 MG in Premix Bag 1 BAG IVPB SCH ×3 (04:13→20:48)
[2021-05-09] MEDS: Piperacillin/Tazobactam 3.375 GM in Sodium Chloride 0.9% 100 ML IVPB SCH ×3 (05:22→21:00)
[2021-05-09] MEDS: Levothyroxine Sodium 100 MCG TAB PO SCH (05:22)
[2021-05-09 06:14] LABS: #Eosinphils 0.2 thou/uL (0.0-0.7); #Lymphocytes 1.7 thou/uL (1.20-3.40); #Neutrophils 7.9 thou/uL (1.40-6.50); %Basophils 0.3 % (0.0-1.0); %Eosinophils 1.5 % (0.0-10.0); %Lymphocytes 15.7 % (21.0-51.0); %Neutrophils 73.5 % (42.0-75.0); Mean Corpuscular HGB CONC 33.4 g/dL (32.0-36.0); Mean Corpuscular Hemoglobin 32.2 pg (27.0-31.0); Mean Corpuscular Volume 96.4 fL (78.0-98.0); Mean Platelet Volume 7.4 fL (7.4-10.4); Platelet Count 427 thou/uL (130-400); RBC Distribution Width 13.8 % (11.5-14.5); White Blood Cell (WBC) Count 10.8 thou/uL (4.8-10.8)
[2021-05-09 06:36] LABS: Anion Gap 11 mmol/L (10-20); BUN (Urea Nitrogen) 8 mg/dL (8.9-20.6); Calc. Creatinine Clearance 220 mL/min (70-130); Calcium 7.6 mg/dL (7.8-10.44); Carbon Dioxide 23 mmol/L (22-29); Chloride 108 mmol/L (98-107); Glucose 83 mg/dL (70-105); Potassium 4.1 mmol/L (3.5-5.1); Sodium 138 mmol/L (136-145)
[2021-05-09] MEDS: Budesonide 0.25 MG/2 ML NEB INH SCH (08:00)
[2021-05-09] MEDS: Lurasidone 20 MG TABLET PO SCH ×2 (08:40→20:50)
[2021-05-09] MEDS: Bupropion 100 MG SR TAB PO SCH (08:40)
[2021-05-09] MEDS: Famotidine 20 MG TAB PO SCH ×2 (08:40→20:48)
[2021-05-09] MEDS: Enoxaparin Sodium 30 MG/0.3 ML SYRINGE SC SCH ×2 (08:41→20:48)
[2021-05-09] MEDS: Famotidine/PF 20 mg/2ml Vial SLOW IVP SCH ×2 (08:41→20:50)
[2021-05-09] MEDS: Senokot S 8.6-50 MG TAB PO SCH ×2 (08:41→20:49)
[2021-05-09] MEDS: Venlafaxine HCl XR 75 MG CAP PO SCH (08:41)
[2021-05-09] MEDS ORDERED: Budesonide 0.25 MG/2 ML NEB INH PRN (11:30)
[2021-05-09] MEDS: Polyethylene Glycol 3350 17 GM Packet PO SCH (11:36)
[2021-05-09] MEDS: Zolpidem Tartrate 5 MG TAB PO SCH (20:49)
[2021-05-09] MEDS: Temazepam 15 MG CAP PO SCH (20:49)
[2021-05-09] MEDS: Aripiprazole 15 MG TAB PO SCH (20:50)
[2021-05-09] MEDS: Prazosin HCl 1 MG CAP PO SCH (20:50)
[2021-05-10] MEDS: Sodium Chloride 0.9% 1,000 ML IV SCH ×3 (01:57→16:19)
[2021-05-10] MEDS: metroNIDAZOLE 500 MG in Premix Bag 1 BAG IVPB SCH ×3 (03:18→20:33)
[2021-05-10] MEDS: Piperacillin/Tazobactam 3.375 GM in Sodium Chloride 0.9% 100 ML IVPB SCH ×3 (05:47→22:23)
[2021-05-10] MEDS: Levothyroxine Sodium 100 MCG TAB PO SCH (05:47)
[2021-05-10 06:12] LABS: #Eosinphils 0.3 thou/uL (0.0-0.7); #Lymphocytes 1.7 thou/uL (1.20-3.40); #Monocytes 1.4 thou/uL (0.11-0.59); #Neutrophils 10.3 thou/uL (1.40-6.50); %Basophils 0.3 % (0.0-1.0); %Eosinophils 1.9 % (0.0-10.0); %Lymphocytes 12.2 % (21.0-51.0); %Monocytes 9.9 % (0.0-10.0); %Neutrophils 75.7 % (42.0-75.0); Hemoglobin 9.5 g/dL (14.0-18.0); Mean Corpuscular HGB CONC 33.5 g/dL (32.0-36.0); Mean Corpuscular Volume 95.6 fL (78.0-98.0); Mean Platelet Volume 7.2 fL (7.4-10.4); Platelet Count 436 thou/uL (130-400); RBC Distribution Width 13.7 % (11.5-14.5); Red Blood Cell (RBC) Count 2.98 mill/uL (4.70-6.10); White Blood Cell (WBC) Count 13.7 thou/uL (4.8-10.8)
[2021-05-10 06:31] LABS: Anion Gap 9 mmol/L (10-20); BUN (Urea Nitrogen) 7 mg/dL (8.9-20.6); Calc. Creatinine Clearance 215 mL/min (70-130); Carbon Dioxide 26 mmol/L (22-29); Chloride 106 mmol/L (98-107); Glucose 85 mg/dL (70-105); Potassium 4.1 mmol/L (3.5-5.1); Sodium 137 mmol/L (136-145)
[2021-05-10] MEDS: Lurasidone 20 MG TABLET PO SCH ×2 (10:12→20:35)
[2021-05-10] MEDS: Famotidine 20 MG TAB PO SCH ×2 (10:12→20:35)
[2021-05-10] MEDS: Senokot S 8.6-50 MG TAB PO SCH ×2 (10:12→20:35)
[2021-05-10] MEDS: Bupropion 100 MG SR TAB PO SCH (10:13)
[2021-05-10] MEDS: Venlafaxine HCl XR 75 MG CAP PO SCH (10:13)
[2021-05-10] MEDS: Enoxaparin Sodium 30 MG/0.3 ML SYRINGE SC SCH ×2 (10:13→20:34)
[2021-05-10] MEDS: Polyethylene Glycol 3350 17 GM Packet PO SCH (10:13)
[2021-05-10] MEDS: Famotidine/PF 20 mg/2ml Vial SLOW IVP SCH ×2 (12:30→20:36)
[2021-05-10] MEDS: Morphine 4 MG/ML VIAL SLOW IVP PRN (13:21)
[2021-05-10] MEDS: Zolpidem Tartrate 5 MG TAB PO SCH (20:35)
[2021-05-10] MEDS: Temazepam 15 MG CAP PO SCH (20:35)
[2021-05-10] MEDS: Prazosin HCl 1 MG CAP PO SCH (20:36)
[2021-05-10] MEDS: Aripiprazole 15 MG TAB PO SCH (20:36)
[2021-05-11] MEDS: metroNIDAZOLE 500 MG in Premix Bag 1 BAG IVPB SCH ×4 (04:07→22:08)
[2021-05-11] MEDS: Levothyroxine Sodium 100 MCG TAB PO SCH (05:44)
[2021-05-11] MEDS: Piperacillin/Tazobactam 3.375 GM in Sodium Chloride 0.9% 100 ML IVPB SCH ×4 (05:44→22:39)
[2021-05-11] MEDS: Venlafaxine HCl XR 75 MG CAP PO SCH (08:14)
[2021-05-11] MEDS: Acetaminophen 500 MG TAB PO PRN ×2 (08:14→20:16)
[2021-05-11] MEDS: Famotidine 20 MG TAB PO SCH ×2 (08:14→20:09)
[2021-05-11] MEDS: Bupropion 100 MG SR TAB PO SCH (08:14)
[2021-05-11] MEDS: Senokot S 8.6-50 MG TAB PO SCH ×2 (08:14→20:08)
[2021-05-11] MEDS: Enoxaparin Sodium 30 MG/0.3 ML SYRINGE SC SCH ×2 (08:14→20:08)
[2021-05-11] MEDS: Polyethylene Glycol 3350 17 GM Packet PO SCH (08:14)
[2021-05-11] MEDS: Famotidine/PF 20 mg/2ml Vial SLOW IVP SCH ×2 (08:15→20:09)
[2021-05-11] MEDS: Lurasidone 20 MG TABLET PO SCH ×2 (09:47→20:09)
[2021-05-11] MEDS: Sodium Chloride 0.9% 1,000 ML IV SCH ×2 (20:02→22:06)
[2021-05-11] MEDS: Temazepam 15 MG CAP PO SCH (20:08)
[2021-05-11] MEDS: Zolpidem Tartrate 5 MG TAB PO SCH (20:08)
[2021-05-11] MEDS: Prazosin HCl 1 MG CAP PO SCH (20:10)
[2021-05-11] MEDS: Aripiprazole 15 MG TAB PO SCH (20:12)
[2021-05-12] MEDS: metroNIDAZOLE 500 MG in Premix Bag 1 BAG IVPB SCH ×2 (04:00→13:19)
[2021-05-12] MEDS: Levothyroxine Sodium 100 MCG TAB PO SCH (05:41)
[2021-05-12] MEDS: Piperacillin/Tazobactam 3.375 GM in Sodium Chloride 0.9% 100 ML IVPB SCH ×2 (05:41→14:52)
[2021-05-12] MEDS: Polyethylene Glycol 3350 17 GM Packet PO SCH (08:42)
[2021-05-12] MEDS: Venlafaxine HCl XR 75 MG CAP PO SCH (08:44)
[2021-05-12] MEDS: Lurasidone 20 MG TABLET PO SCH (08:44)
[2021-05-12] MEDS: Senokot S 8.6-50 MG TAB PO SCH (08:44)
[2021-05-12] MEDS: Famotidine 20 MG TAB PO SCH (08:44)
[2021-05-12] MEDS: Bupropion 100 MG SR TAB PO SCH (08:44)
[2021-05-12] MEDS: Enoxaparin Sodium 30 MG/0.3 ML SYRINGE SC SCH (08:46)
[2021-05-12] MEDS: Acetaminophen 500 MG TAB PO PRN (10:25)
[2021-05-12 12:38] LABS: SARS-CoV-2 PCR by NAA Not Detected (NotDetected)
[2021-05-12 18:23] VITALS: BP 131/83; TEMP 98.7
== END 2021-05-12 19:00 | disposition home or self-care (01) | DRG 853 ==
LOC: ERS 15:14 → SURG A 17:28
PROVIDERS: ADMIT Surgery; ATTEND Surgery
PROC: 0W9G30Z Drainage of Peritoneal Cavity with Drainage Device, Percutaneous Approach (ICD-10-PCS; 2021-04-27)
PROC: 5A09357 Assistance with Respiratory Ventilation, Less than 24 Consecutive Hours, Continuous Positive Airway Pressure (ICD-10-PCS; 2021-05-01)
PROC: 0DTG0ZZ Resection of Left Large Intestine, Open Approach (ICD-10-PCS; principal; 2021-05-05)
PROC: 0D1L0Z4 Bypass Transverse Colon to Cutaneous, Open Approach (ICD-10-PCS; 2021-05-05)
DX: A41.9 Sepsis, unspecified organism (principal); K65.9 Peritonitis, unspecified; K65.1 Peritoneal abscess; K57.20 Diverticulitis of large intestine with perforation and abscess without bleeding; E87.1 Hypo-osmolality and hyponatremia; E03.9 Hypothyroidism, unspecified; F32.A Depression, unspecified; F41.9 Anxiety disorder, unspecified; Z20.822 Contact with and (suspected) exposure to COVID-19; M1A.9XX0 Chronic gout, unspecified, without tophus (tophi); J44.9 Chronic obstructive pulmonary disease, unspecified; E66.01 Morbid (severe) obesity due to excess calories; F25.9 Schizoaffective disorder, unspecified; F39 Unspecified mood [affective] disorder; G47.33 Obstructive sleep apnea (adult) (pediatric); R09.02 Hypoxemia; Z87.891 Personal history of nicotine dependence; Z68.35 Body mass index [BMI] 35.0-35.9, adult
CPT/HCPCS: 36415; 36416; 49020; 71045; 71046; 74019; 74177; 77002; 80048; 80053; 83605; 83690; 83735; 83880; 84100; 85007; 85025; 85027; 85060; 85610; 85730; 86140; 86850; 86900; 86901; 87040; 87070; 87076; 87077; 87149; 87186; 87205; 88307; 93005; 93970; 94640; 94660; 96365; 96366; 96375; J0694; J1100; J1170; J1650; J1885; J1956; J2250; J2270; J2370; J2405; J2543; J2550; J2704; J3010; J3475; J3490; J7030; J7050; J7620; J7626; Q9967; S0028; U0002; U0003; U0005